=== PATIENT | male | born 1970 | race Two or more races ===

== ENCOUNTER 2019-07-26 09:19 | Day surgery (SDC) | payer OTHER ==
[2019-07-26] VITALS (11 sets, daily range): BP systolic 143–162; BP diastolic 70–90
[~2019-07-26] VITALS: Ht 180.3 cm; Wt 95.3 kg
[2019-07-26] MEDS ORDERED: Acetic Acid 3% Solution 15ml TOPIC ONE (10:30)
[2019-07-26] MEDS ORDERED: cefOXitin 2gm Inj ONE (10:31)
[2019-07-26] MEDS ORDERED: EPINEPHrine 1mg/1ml Amp ONE (10:31)
[2019-07-26] MEDS ORDERED: Ropivacaine 5mg/ml Vial 20ml INJ ONE (10:32)
[2019-07-26] MEDS ORDERED: Dexamethasone 4mg/ml vial ONE (10:32)
[2019-07-26] MEDS ORDERED: LR 1000ml 1,000 ML IVLG SCH (10:59)
[2019-07-26] MEDS ORDERED: Ketorolac 30mg Inj IV PRN ×2 (11:00)
[2019-07-26] MEDS ORDERED: Atropine Sulfate 0.4mg/ml inj IVP PRN (11:00)
[2019-07-26] MEDS ORDERED: fentaNYL 100 mcg/2 mL IV PRN (11:00)
[2019-07-26] MEDS ORDERED: HYDROcodone/Acetamin 5/325 tab ORAL PRN (11:00)
[2019-07-26] MEDS ORDERED: Midazolam 2mg/2ml Inj IVP PRN (11:00)
[2019-07-26] MEDS ORDERED: LORazepam Inj 2mg/ml 1ml IV PRN (11:00)
[2019-07-26] MEDS ORDERED: Hydromorphone 0.5mg/0.5ml inj IVP PRN (11:00)
[2019-07-26] MEDS ORDERED: Labetalol 5mg/ml 20ml vial IV PRN (11:00)
[2019-07-26] MEDS ORDERED: Meperidine 25mg/0.5ml Inj (FOR RIGORS ONLY) IV PRN (11:00)
[2019-07-26] MEDS ORDERED: HYDROcodone/Acetamin 7.5/325 tab ORAL PRN (11:00)
[2019-07-26] MEDS ORDERED: DiphenhydrAMINE 50mg/ml Inj IVP PRN (11:00)
[2019-07-26] MEDS ORDERED: oxyCODONE HCL/Acetaminophen 5/325mg ORAL PRN (11:00)
[2019-07-26] MEDS ORDERED: Acetaminophen (Non formulary) 100 ML IV ONE (11:00)
[2019-07-26] MEDS ORDERED: Metoclopramide 10mg/2ml Inj IVP PRN (11:00)
--- NOTE | 2019-07-26 11:02 | Anethesia Preoperative Eval ---
Anesthesia Pre-op PMH/ROS General Date of Evaluation: Jul 26, 2019 Time of Evaluation: 11:30 Anesthesiologist: Hal ASA Score: ASA 3 Mallampati Score Class I : Soft palate, uvula, fauces, pillars visible Class II: Soft palate, uvula, fauces visible Class III: Soft palate, base of uvula visible Class IV: Only hard plate visible Mallampati Classification: Class III Surgeon: Pradip Diagnosis: Anal Condyloma Surgical Procedure: Excision, Fulgaration Anal Condyloma Anesthesia History: none Family History: no anesthesia problems Allergies: Coded Allergies: SULFA (SULFONAMIDE ANTIBIOTICS) (Verified Allergy, Intermediate, rash, 07/25) Medications: see eMAR Patient NPO?: Yes Past Medical History Cardiovascular: Reports: HTN, other - HL Pulmonary: Reports: asthma Neurologic/Psychiatric: Reports: depression/anxiety Endocrine: Reports: DM Hematology/Immune: Reports: other - HIV Anesthesia Pre-op Phys. Exam Physician Exam Last Vital Signs Date Time Temp Pulse Resp B/P (MAP) Pulse Ox O2 Delivery O2 Flow Rate FiO2 07/26/19 10:51 Room Air 07/26/19 10:29 97.4 70 20 145/87 96 Constitutional: NAD Neurologic: CN 2-12 intact Cardiovascular: RRR Respiratory: CTA Gastrointestinal: S/NT/ND Airway Exam Mallampati Score: Class II MO: full ROM: full Teeth: intact Anesthesia Pre-op A/P Risk Assessment & Plan Assessment: ASA 3 Plan: TIVA Status Change Before Surgery: No Pre-Antibiotics Dru Gram Cefoxitin IV Given Within 1 Hr of Incision: Yes Time Given: 11:41 Jamie Hong MD Jul 26, 2019 11:02
--- NOTE | 2019-07-26 11:09 | Immediate Post-Op Evaluation ---
Immediate Post-Op Evalulation Immediate Post-Op Evalulation Procedure: Excision, Fulgaration Anal Condyloma Date of Evaluation: Jul 26, 2019 Time of Evaluation: 12:32 IV Fluids: 600 LR Blood Products: 0 Estimated Blood Loss: 10 Urinary Output: 0 Blood Pressure Systolic: 162 Blood Pressure Diastolic: 90 Pulse Rate: 103 Respiratory Rate: 16 O2 Sat by Pulse Oximetry: 98 Temperature (Fahrenheit): 98.8 Pain Score (1-10): 1 Nausea: No Vomiting: No Complications 0 Patient Status: awake, reacts, patent, none Hydration Status: adequate Dru Grams Cefoxitin IV Given Within 1 Hr of Incision: Yes Time Given: 11:41 Jamie Hong MD Jul 26, 2019 11:09
--- NOTE | 2019-07-26 11:14 | Pre-Procedure Note/Attestation ---
Pre-Procedure Note/Attestation Complete Prior to Procedure Planned Procedure: not applicable Procedure Narrative: High-resolution anoscopy with biopsies Indications for Procedure Pre-Operative Diagnosis: HPV Attestation I attest that I discussed the nature of the procedure; its benefits; risks and complications; and alternatives (and the risks and benefits of such alternatives ), prior to the procedure, with the patient (or the patient's legal advertising sales representative). I attest that, if there was a reasonable possibility of needing a blood transfusion, the patient (or the patient's legal advertising sales representative) was given the [facility] standardized written summary, pursuant to the Raghavendra Tiffanie Blood Safety Act ([place] Health and Safety Code # 1645, as amended). I attest that I re-evaluated the patient just prior to the surgery and that there has been no change in the patient's H&P, except as documented below: Sharonda Moseley MD Jul 26, 2019 11:14
[2019-07-26] MEDS ORDERED: OMEPRAZOLE40 M1 ORAL (11:23)
[2019-07-26] MEDS ORDERED: STRIBILD TABLE1 EACH PO (11:23)
[2019-07-26] MEDS ORDERED: BENICAR40 MG ORAL (11:24)
[2019-07-26] MEDS ORDERED: CRESTOR10 M2 ORAL (11:26)
[2019-07-26] MEDS ORDERED: METFORMIN HCL850 M1 ORAL (11:27)
[2019-07-26] MEDS ORDERED: Lidocaine 1% Plain 30 ml INJ ONE (11:27)
[2019-07-26] MEDS ORDERED: SYMBICORT 16010.2 G1 IH (11:28)
[2019-07-26] MEDS ORDERED: NS Irrig 1000ml ONE (11:30)
[2019-07-26] MEDS ORDERED: LR 1000ml ONE (11:30)
[2019-07-26] MEDS ORDERED: Sterile Water Irrig 1000ml IRRIG ONE (11:30)
[2019-07-26] MEDS ORDERED: LEXAPRO10 MG ORAL (11:30)
[2019-07-26] MEDS ORDERED: MELATONIN10 M3 ORAL (11:31)
[2019-07-26] MEDS ORDERED: AMBIEN10 M1 ORAL (11:31)
[2019-07-26] MEDS ORDERED: ZYRTEC10 MG ORAL (11:32)
--- NOTE | 2019-07-26 11:32 | 48 Hour Post Anesthesia Eval ---
Post Anesthesia Evaluation Procedure: Excision, Fulgaration Anal Condyloma Date of Evaluation: Jul 26, 2019 Time of Evaluation: 14:44 Blood Pressure Systolic: 152 0: 92 Pulse Rate: 103 Respiratory Rate: 18 Temperature (Fahrenheit): 98.6 O2 Sat by Pulse Oximetry: 98 Airway: patent Nausea: No Vomiting: No Pain Intensity: 2 Hydration Status: adequate Cardiopulmonary Status: Stable Mental Status/LOC: patient returned to baseline Follow-up Care/Observations: 0 Post-Anesthesia Complications: 0 Follow-up care needed: ready to discharge Jamie Hong MD Jul 26, 2019 11:32
[2019-07-26] MEDS ORDERED: Lidocaine 1% MPF 10mg/ml 5ml ONE (11:33)
[2019-07-26] MEDS ORDERED: Propofol 200mg/20ml IV ONE (11:33)
[2019-07-26] MEDS ORDERED: Vit D PO (11:34)
--- NOTE | 2019-07-26 12:22 | Brief Operative Note ---
Immediate Post Operative Note Operative Note Chief Complaint: HPV Pre-op Diagnosis: HPV Procedure: High-resolution anoscopy with biopsies Post-op Diagnosis: same as pre-op Findings: consistent w/pre-op dx studies Surgeon: Sharonda Moseley MD Anesthesiologist: Kimber Hong MD Anesthesia: moderate sedation Specimen: yes Complications: none Condition: stable Fluids: see anesthesia record Estimated Blood Loss: minimal Drains: none Implant(s) used?: No Sharonda Moseley MD Jul 26, 2019 12:22
--- NOTE | 2019-07-26 15:45 | Operative Note - Dictated ---
DATE OF OPERATION: 07/26/2019 PRE-PROCEDURE DIAGNOSES: History of HPV with abnormal anal Pap smear, and history of HIV. POST-PROCEDURE DIAGNOSES: History of HPV with abnormal anal Pap smear, and history of HIV. PROCEDURE: High-resolution anoscopy with biopsies. SURGEON: Sharonda Moseley M.D. ANESTHESIOLOGIST: Jamie Hong M.D. ANESTHESIA: Propofol sedation with local anesthetic. INDICATION FOR PROCEDURE: The patient is a 48-year-old male, who is a long-term patient of mine and has been followed for his anal Pap smears. The patient has a history of HIV diagnosed in 1997. His last anal Pap smear showed some atypical cells and in light of his long-term history of HIV, it was determined at this time to proceed with high-resolution anoscopy with biopsies. DESCRIPTION OF PROCEDURE: Upon consent from the patient, the patient brought to the operating room and placed in the prone judit-knife position on the operating table. Once adequate sedation was established with propofol drip, the patient's buttocks were prepped and draped in usual surgical fashion. A 40 mL of 0.5% ropivacaine with epinephrine mixed with 8 mg of dexamethasone was used as a perianal and pudendal block. A [place] retractor was placed into the anal canal was noted to be moderate-sized internal hemorrhoids circumferentially. Multiple biopsies were taken of all 4 quadrants of the perianal region, anal verge, and dentate line. This was also on the field as separate specimens. There were areas of leukoplakia, they were also included in the biopsies as well. The patient was noted to have moderately-sized internal hemorrhoids circumferentially. No canals and stained with 3% acetic acid and all areas of staining were electrofulgurated as well. The anal canal was then irrigated and hemostasis was confirmed. Sterile dry dressing was used as an outer dressing. Sponge, needle, and instrument counts were correct at the end of the case. The patient was awakened from anesthesia and brought to postanesthesia recovery in stable condition. ESTIMATED BLOOD LOSS: Less than 5 mL. DRAINS: None. SPECIMEN: Multiple anal biopsies of the perineal region, anal verge, and dentate line. COMPLICATIONS: None. Sharonda Moseley M.D. DR: GERA JOB#: [id number] CC: Sharonda Moseley M.D.; Fax#: [phone] Alicia Messer M.D.
== END 2019-07-26 13:30 | disposition home or self-care (01) ==
LOC: SUR 09:19
DX: A63.0 Anogenital (venereal) warts (principal); B20 Human immunodeficiency virus [HIV] disease; Z88.2 Allergy status to sulfonamides; I10 Essential (primary) hypertension; F32.9 Major depressive disorder, single episode, unspecified; F41.9 Anxiety disorder, unspecified; E11.9 Type 2 diabetes mellitus without complications
CPT/HCPCS: 46606; J0131; J0171; J0694; J1100; J2001; J2250; J2704; J2795; J7120; 94003; 94150